=== PATIENT | female | born 1985 | race African-American/Black ===

== ENCOUNTER 2020-07-26 20:00 | Inpatient (IN) ==
[2020-07-26] MEDS ORDERED: ONDANSETRON 4 MG/2 ML VIAL IV PRN (21:07)
[2020-07-26 21:17] LABS: Basophils % 0.2 % (0.0-0.8); Eosinophils # 0.1 10*3/uL (0.0-0.87); Eosinophils % 1.5 % (0.00-10.9); Hematocrit 26.9 VOL% (35.7-47.0); Immature Granulocytes % 0.5 %; Immature Granulocytes Absolute 0.05 #; Lymphocytes # 2.2 10*3/uL (1.4-4.0); Mean Corpuscular HGB Conc 33.5 GM/DL (32-36); Mean Corpuscular Volume 82.5 FL (87-102); Mean Platelet Volume 10.2 FL (9.6-12.0); Monocytes % 7.2 % (1.7-12.7); Neutrophils % 67.6 % (38.7-73.9); Platelet Count 249 T/CUMM (130-400); Red Blood Count 3.26 MC/CUMM (3.8-5.5); Red Cell Distribution Width 13.7 % (9.3-17.3); White Blood Count 9.4 T/CUMM (4-12)
[2020-07-26 21:45] LABS: Eosinophils 2 % (0-10); Lymphocytes 20 % (20-55); Segmented Neutrophils 77 % (50-85); Total Cells Counted 100
[2020-07-26 21:49] LABS: Bilirubin,Urine Negative (Negative); Blood, Urine Negative (Negative); Glucose,Urine (UA) Negative (Negative); Ketones,Urine Negative (Negative); Mucus,Urine Few /LPF (Occasional); Nitrite,Urine Negative (Negative); Protein,Urine Negative; RBC,Urine 1 /HPF (0-4); Squamous Epithelial Cell,Urine Occasional /HPF (0-10); Urine Appearance CLEAR (Clear); Urine Color Yellow (Yellow); Urine Urobilinogen < 2.0 EU/DL (0.2-1.0); WBC,Urine 1 /HPF (0-6)
[2020-07-27] MEDS ORDERED: OXYTOCIN/LR 20 UNIT/1,000 ML BAG IV SCH (05:00)
[2020-07-27] MEDS ORDERED: BUTORPHANOL 2 MG/ML VIAL IV PRN (05:23)
[2020-07-27] MEDS: LACTATED RINGERS 1,000 ML IV SCH ×2 (05:31→09:59)
[2020-07-27] MEDS ORDERED: MEPERIDINE 50 MG/1 ML VIAL IV PRN (08:31)
[2020-07-27] MEDS ORDERED: ePHEDrine 50 MG/ML VIAL IV PRN (09:04)
[2020-07-27] MEDS ORDERED: NALOXONE 0.4 MG/ML VIAL IV PRN (09:04)
[2020-07-27] MEDS ORDERED: diphenhydrAMINE 50 MG/1 ML VIAL IV PRN (09:04)
[2020-07-27] MEDS ORDERED: CITRIC ACID/SODIUM CITRATE 30 ML UDCUP PO ONE (09:06)
[2020-07-27] MEDS ORDERED: FAMOTIDINE 20 MG/2 ML VIAL IV ONE (09:06)
[2020-07-27] MEDS ORDERED: fentaNYL 2 MCG/ROPIV 0.2% EPID 100 ML EPIDURAL SCH (09:30)
[2020-07-27] MEDS ORDERED: TRANEXAMIC ACID 1,000 MG/10 ML VIAL ONE (13:20)
[2020-07-27] MEDS ORDERED: miSOPROStoL 200 MCG TABLET ONE (13:20)
[2020-07-27] MEDS ORDERED: CARBOPROST TROMETHAMINE 250 MCG/ML AMP IM ONE (13:21)
[2020-07-27] MEDS ORDERED: METHYLERGONOVINE 0.2 MG/1 ML AMP ONE (13:21)
[2020-07-27 14:21] LABS: Cord Venous Blood HCO3 19.7 MMOL/L; Cord Venous Blood PCO2 43.8 MMHG; Cord Venous Blood PO2 32.5
[2020-07-27 16:01] LABS: Basophils % 0.2 % (0.0-0.8); Eosinophils % 0.1 % (0.00-10.9); Hematocrit 24.5 VOL% (35.7-47.0); Hemoglobin 8.2 GM/DL (12.0-16.0); Immature Granulocytes % 0.5 %; Immature Granulocytes Absolute 0.07 #; Lymphocytes # 1.3 10*3/uL (1.4-4.0); Lymphocytes % 8.6 % (21.3-54.2); Mean Corpuscular HGB Conc 33.5 GM/DL (32-36); Mean Corpuscular Volume 83.1 FL (87-102); Mean Platelet Volume 10.3 FL (9.6-12.0); Monocytes % 6.8 % (1.7-12.7); Neutrophils % 83.8 % (38.7-73.9); Platelet Count 218 T/CUMM (130-400); Red Blood Count 2.95 MC/CUMM (3.8-5.5); Red Cell Distribution Width 13.5 % (9.3-17.3); White Blood Count 14.6 T/CUMM (4-12)
[2020-07-27] MEDS ORDERED: BISACODYL 10 MG SUPP RECTAL PRN (16:51)
[2020-07-27] MEDS ORDERED: MAGNESIUM HYDROXIDE SUSP 30 ML UDCUP PO PRN (16:51)
[2020-07-27] MEDS ORDERED: ACETAMINOPHEN 500 MG TABLET PO PRN (16:51)
[2020-07-27] MEDS ORDERED: ONDANSETRON 4 MG/2 ML VIAL IV PRN (16:51)
[2020-07-27] MEDS ORDERED: BENZOCAINE 20%/MENTHOL 0.5% SPRAY 56 GM CAN TOP PRN (17:00)
[2020-07-27] MEDS ORDERED: LACTATED RINGERS 1,000 ML IV SCH (17:00)
[2020-07-27] MEDS: DOCUSATE SODIUM 100 MG CAPSULE PO SCH ×2 (19:44→23:42)
[2020-07-27] MEDS: IBUPROFEN 800 MG TABLET PO PRN (19:44)
[2020-07-28 05:28] LABS: Basophils % 0.2 % (0.0-0.8); Eosinophils # 0.2 10*3/uL (0.0-0.87); Eosinophils % 1.1 % (0.00-10.9); Hematocrit 20.9 VOL% (35.7-47.0); Hemoglobin 6.9 GM/DL (12.0-16.0); Immature Granulocytes % 0.4 %; Immature Granulocytes Absolute 0.05 #; Lymphocytes # 2.4 10*3/uL (1.4-4.0); Lymphocytes % 17.2 % (21.3-54.2); Mean Corpuscular Volume 83.9 FL (87-102); Mean Platelet Volume 10.5 FL (9.6-12.0); Monocytes % 8.6 % (1.7-12.7); Neutrophils % 72.5 % (38.7-73.9); Platelet Count 197 T/CUMM (130-400); Red Blood Count 2.49 MC/CUMM (3.8-5.5); Red Cell Distribution Width 13.5 % (9.3-17.3); White Blood Count 14.2 T/CUMM (4-12)
[2020-07-28 05:52] LABS: Hypochromasia 2+; Lymphocytes 19 % (20-55); Microcytosis 1+; Platelet Estimate Adequate; Segmented Neutrophils 76 % (50-85); Total Cells Counted 100
[2020-07-28] MEDS ORDERED: SODIUM CHLORIDE 0.9% 1,000 ML IV PRN (07:17)
[2020-07-28] MEDS: IRON (CARBONYL)/VIT C/B12/FA TABLET PO SCH (09:22)
[2020-07-28] MEDS: DOCUSATE SODIUM 100 MG CAPSULE PO SCH ×2 (09:22→20:08)
[2020-07-28] MEDS: MULTIVITAMIN (PRENATAL) TABLET PO SCH (09:22)
[2020-07-28] MEDS: IBUPROFEN 800 MG TABLET PO PRN (09:25)
[2020-07-29 05:48] LABS: Basophils % 0.2 % (0.0-0.8); Eosinophils # 0.3 10*3/uL (0.0-0.87); Eosinophils % 2.2 % (0.00-10.9); Hematocrit 25.9 VOL% (35.7-47.0); Hemoglobin 8.6 GM/DL (12.0-16.0); Immature Granulocytes % 0.7 %; Immature Granulocytes Absolute 0.09 #; Lymphocytes # 2.7 10*3/uL (1.4-4.0); Lymphocytes % 20.1 % (21.3-54.2); Mean Corpuscular HGB Conc 33.2 GM/DL (32-36); Mean Corpuscular Volume 84.1 FL (87-102); Mean Platelet Volume 10.7 FL (9.6-12.0); Monocytes % 7.8 % (1.7-12.7); Platelet Count 217 T/CUMM (130-400); Red Blood Count 3.08 MC/CUMM (3.8-5.5); Red Cell Distribution Width 14.1 % (9.3-17.3); White Blood Count 13.5 T/CUMM (4-12)
[2020-07-29 06:34] LABS: Eosinophils 6 % (0-10); Lymphocytes 14 % (20-55); Segmented Neutrophils 71 % (50-85); Total Cells Counted 100
[2020-07-29 06:35] LABS: Hypochromasia 1+; Microcytosis 1+; Ovalocytes Slight
[2020-07-29 06:36] LABS: Platelet Estimate Normal
[2020-07-29] MEDS: IRON (CARBONYL)/VIT C/B12/FA TABLET PO SCH (08:37)
[2020-07-29] MEDS: DOCUSATE SODIUM 100 MG CAPSULE PO SCH (08:37)
[2020-07-29] MEDS: MULTIVITAMIN (PRENATAL) TABLET PO SCH (08:37)
[2020-07-29] MEDS: IBUPROFEN 800 MG TABLET PO PRN (08:44)
[2020-07-29 11:27] VITALS: BP 003/69
== END 2020-07-29 12:05 | disposition home or self-care (01) | DRG 560 ==
LOC: N.LDOUT 20:00 → N.LD 20:03 → N.OB 07-27 16:51
PROVIDERS: ADMIT Obstetrics & Gynecology; ATTEND Obstetrics & Gynecology